=== PATIENT | female | born 1990 | race Hispanic/Latino ===

== ENCOUNTER 2018-04-25 18:08 | Emergency (ER) | payer OTHER ==
[2018-04-25 18:20] VITALS: O2SAT 100
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
[2018-04-25] MEDS ORDERED: cefTRIAXone (Rocephin) 250 mg Inj IM ONE (22:06)
[2018-04-25 23:13] VITALS: PULSE 95; TEMP 97.9
[2018-04-25 23:31] VITALS: BP 114/75; RESP 18
== END 2018-04-25 23:17 | disposition home or self-care (01) ==
LOC: H.ER 18:08
DX: Z04.41 Encounter for examination and observation following alleged adult rape (principal); F41.9 Anxiety disorder, unspecified
CPT/HCPCS: 81025; 87390; 96372; 99285; J0696